=== PATIENT | female | born 1960 | race Caucasian/White ===

== ENCOUNTER 2022-07-30 09:07 | Emergency (ER) | payer BC, SELFPAY ==
--- NOTE | ~2022-07-30 | XR_ITS ---
XR foot LT min 3V DATE: 07/30/2022 09:20 INDICATION: Left foot pain. Stepped on glass. TECHNIQUE: 4 views COMPARISON: None FINDINGS: Mild plantar calcaneal enthesopathy. No fracture or dislocation or bone destruction. There is focal mild organized chronic linear perioste al reaction along the proximal lateral shaft of the second metatarsal bone and distal shaft of the th ird metatarsal bone. These areas may be due to chronic stress fracture. There is an approximately 2 mm long very thin linear right lentiform body overlying the soft tissues of the anterior foot noted on the lateral view at the metatarsophalangeal area at the ball of the marcella t. IMPRESSION: Small radiopaque soft tissue foreign body at [place] of foot Reviewed, dictated and finalized at location A. IMPRESSION: Small radiopaque soft tissue foreign body at [facility] foot
[2022-07-30 09:23] VITALS: BP 125/82; PULSE 97; RESP 18; TEMP 36.7; O2SAT 98
--- NOTE | 2022-07-30 10:01 | ED.LOWEXIN ---
HPI - Extremity Injury (Lower) General Chief Complaint: Extremity Injury, Lower Stated Complaint: glass in left foot Time Seen by Provider: 07/30/22 09:44 History of Present Illness HPI Narrative: 61-year-old female presents to the ER today for a small piece of glass embedded in the ball of her left foot. She stepped on it this morning. Increased pain with weightbearing. Not sure when her last tetanus was. Review of Systems Review of Systems: CONSTITUTIONAL: Denies fever, chills, or sweats. EYES: Denies visual changes, redness, or discharge. ENT: Denies rhinorrhea, congestion, sore throat, or otalgia. CARDIOVASCULAR: Denies chest pain, palpitations, or edema. RESPIRATORY: Denies cough or dyspnea. GASTROINTESTINAL: Denies abdominal pain, nausea, vomiting, or diarrhea. GENITOURINARY: Denies dysuria or hematuria. SKIN: As per HPI MUSCULOSKELETAL: Denies back pain, joint pain, or myalgia. NEUROLOGIC: Denies headache, numbness, dizziness, or weakness. PSYCHIATRIC: Denies anxiety or depression. Exam Narrative: GENERAL: Well-appearing, well-nourished, and in no acute distress. NECK: Supple. No adenopathy or masses. No carotid bruits or JVD CHEST: No respiratory distress. HEART. Normal peripheral pulses. EXTREMITIES: Normal range of motion. No edema. SKIN: Warm, dry, no rash. Very small puncture site to the ball of the left foot. Very small piece of glass palpated. NEURO: No focal deficits. Alert and oriented x3. PSYCH: Normal mood and affect. Course Vital Signs Vital signs: Vital Signs Temperature 36.7 C 07/30/22 09:23 Pulse Rate 97 07/30/22 09:23 Respiratory Rate 18 07/30/22 09:23 Blood Pressure 125/82 07/30/22 09:23 Pulse Oximetry 98 07/30/22 09:23 Oxygen Delivery Room Air 07/30/22 09:23 Temperature 36.7 C 07/30/22 09:23 Pulse Rate 97 07/30/22 09:23 Respiratory Rate 18 07/30/22 09:23 Blood Pressure 125/82 07/30/22 09:23 Pulse Oximetry 98 07/30/22 09:23 Oxygen Delivery Room Air 07/30/22 09:23 Procedures Foreign Body Removal Foreign Body #1: Foreign Body Removal Date: 07/30/22 Foreign Body Removal Time: 10:15 Site: foot (left) Description of foreign body: other (glass) Sedation/Analgesia: other (local lidocaine 1% w/o epi) Technique: removal with forceps Confirmed by:: direct visualization and palpation Complications: none Post-procedure exam: awake, alert Neurovascular: normal capillary fill Foreign Body Removal Narrative: Tolerated well, no complication Discharge Plan Discharge Clinical Impression: Foreign body in foot, left Qualifiers: Encounter type: initial encounter Qualified Code(s): S90.852A - Superficial foreign body, left foot, initial encounter Patient Disposition: Home, Self-Care Condition: Stable Instructions: Antibiotic Form, Soft Tissue Foreign Body (ED) Additional Instructions: Apply Neosporin and Band-Aid daily until healed. Follow-up with primary care provider if any problems with redness swelling or drainage. Follow-up/Referrals: PHYSICIAN NOT ON STAFF,NONSTAFF [Primary Care Provider] - (as needed) Time of Disposition: 10:25
[2022-07-30] MEDS: TETANUS,DIPHTHERIA,AC PERTUSSIS ADULT (0.5 ML) BOOSTRIX IM (10:03)
== END 2022-07-30 10:33 | disposition home or self-care (01) ==
PROVIDERS: Emergency Provider Nurse Practitioner Family
DX: S90.852A Superficial foreign body, left foot, initial encounter (principal); W25.XXXA Contact with sharp glass, initial encounter; W45.8XXA Other foreign body or object entering through skin, initial encounter; Z23 Encounter for immunization
CPT/HCPCS: 73630; 90471; 90715; 99283